=== PATIENT | male | born 1950 | race African-American/Black ===

== ENCOUNTER 2022-02-07 16:34 | Inpatient (IN) | payer MEDICARE, OTHER ==
[2022-02-07] VITALS (8 sets, daily range): BP systolic 62–94; BP diastolic 41–62
[~2022-02-07] VITALS: Ht 177.8 cm; Wt 102.1 kg
[~2022-02-07 16:34] MED LIST: AMLO10TA4 PO; ETOMIDATE 2MG/ML 10ML VIAL IV ONE; IMOD PO; OMEP20CA14 PO; SODIUM CHLORIDE 0.9% 10ML VIAL ONE; TRAM50TA3 PO; VECURONIUM BROMIDE 10 MG/VIAL IV ONE
[2022-02-07] MEDS ORDERED: PIPERACILLIN/TAZ 3.375G PREMIX 50 ML IV ONE (16:45)
[2022-02-07] MEDS ORDERED: VANCOMYCIN 1G PREMIX 200 ML IV ONE (16:45)
[2022-02-07] MEDS ORDERED: SODIUM CHLORIDE 0.9% 1000ML BAG (SEPSIS BOLUS) IV ONE (16:45)
[2022-02-07] MEDS ORDERED: PROPOFOL 10MG/ML 100ML 100 ML IV STA (16:46)
[2022-02-07] MEDS ORDERED: ACETAMINOPHEN 650MG SUPP PR ONE (17:00)
[2022-02-07 17:30] LABS: BG BASE EXCESS -0.2 mmol/L (-2.0-2.0); BG CARBOXYHEMOGLOBIN 1.3 % (0.5-1.5); BG DEOXYHEMOGLOBIN 1.8 % (0.0-5.0); BG FRACTION INSPIRED OXYGEN 100; BG HCO3 ACT 25.4 mmol/L (22.0-26.0); BG METHEMOGLOBIN 0.4 % (0.0-1.5); BG OXYGEN SATURATION 98.2 % (92.0-98.5); BG OXYHEMOGLOBIN 96.5 % (94.0-97.0); BG PCO2 45.2 mmHg (35.0-45.0); BG PH 7.368 (7.350-7.450); BG PO2 110.5 mmHg (75.0-100.0); BG SAMPLE SITE LEFT BRACHIAL; BG TOTAL HEMOGLOBIN 14.6 g/dL (12.0-18.0); BG VENT MODE VENT - AC
[2022-02-07] MEDS ORDERED: MIDAZOLAM 100MG/100ML PMX 100 ML IV STA (17:44)
[2022-02-07 17:46] LABS: HEMATOCRIT. 41.8 % (42.0-52.0); MEAN CORPUSCULAR HEMOGLOBIN 30.6 pg (28.0-32.0); MEAN CORPUSCULAR VOLUME 91.3 fL (80.0-94.0); MEAN PLATELET VOLUME 8.4 fl (7.4-10.4); PLATELET 261 x1000/uL (130-400); RED BLOOD CELL COUNT 4.57 mill/uL (4.7-6.1); RED CELL DISTRIBUTION WIDTH 14.4 % (11.6-14.6)
[2022-02-07 17:50] LABS: CLARITY URINE CLEAR (CLEAR); COLOR URINE YELLOW (YELLOW); KETONES URINE TRACE (NEGATIVE); LEUKOCYTE ESTERASE URINE TRACE (NEGATIVE); NITRITE URINE NEGATIVE (NEGATIVE); OCCULT BLOOD URINE TRACE (NEGATIVE); PH URINE 5.5 (4.5-8.0); PROTEIN URINE 1+ (NEGATIVE); SPECIFIC GRAVITY URINE 1.021 (1.005-1.030)
[2022-02-07 17:55] LABS: CHLORIDE 98 mEq/L (98-107); INR 1.6; PROTHROMBIN TIME 16.8 sec (9.6-11.0)
[2022-02-07] MEDS ORDERED: MIDAZOLAM HCL 100 MG in DEXT 5% WATER 80 ML IV ONE (18:15)
[2022-02-07] MEDS ORDERED: NOREPINEPHRINE 8 MG in DEXT 5% WATER 242 ML IV STA (19:19)
[2022-02-07] MEDS ORDERED: FENTANYL 2500MCG/250ML PMX 250 ML IV ONE (19:30)
[2022-02-07] MEDS ORDERED: NOREPINEPHRINE 8MG/250ML PMX 250 ML IV ONE (19:30)
[2022-02-07 20:07] LABS: ATYPICAL LYMPHOCYTES 1; PLATELET ESTIMATE NORMAL
[2022-02-07] MEDS ORDERED: KETOROLAC 15MG/ML VIAL IV ONE (20:15)
[2022-02-07] MEDS ORDERED: NOREPINEPHRINE 8MG/250ML PMX 250 ML IV PRN (23:15)
[2022-02-07] MEDS ORDERED: MIDAZOLAM HCL 100 MG in SODIUM CHLORIDE 0.9% 80 ML IV PRN (23:15)
[2022-02-07] MEDS ORDERED: PROPOFOL 10MG/ML 100ML 100 ML IV PRN (23:15)
[2022-02-07] MEDS: NOREPINEPHRINE 8 MG in DEXTROSE 5% WATER 250 ML IV PRN (23:46)
[2022-02-08] VITALS (95 sets, daily range): BP systolic 69–118; BP diastolic 25–77
[2022-02-08] MEDS ORDERED: SODIUM CHLORIDE 0.9% 1,000 ML IV SCH (00:45)
[2022-02-08] MEDS ORDERED: DOCUSATE SODIUM 100MG CAPSULE PO PRN (00:45)
[2022-02-08] MEDS ORDERED: HYDROCODONE/ACETAMINOPHEN 5/325MG TABLET PO PRN (00:45)
[2022-02-08] MEDS ORDERED: CLONIDINE 0.1MG TABLET PO PRN (00:45)
[2022-02-08] MEDS ORDERED: ONDANSETRON HCL 4MG/2ML INJ IV PRN (00:45)
[2022-02-08] MEDS ORDERED: ACETAMINOPHEN 325MG TABLET PO PRN ×2 (00:45)
[2022-02-08] MEDS ORDERED: PIPERACILLIN/TAZOBACTAM 3.375 G in DEXTROSE 5% WATER 50 ML IV SCH ×2 (02:00→14:00)
[2022-02-08] MEDS: NOREPINEPHRINE 8 MG in DEXTROSE 5% WATER 250 ML IV PRN ×2 (02:13→04:06)
[2022-02-08 04:41] LABS: *AMPHETAMINES SCREEN URINE NEGATIVE (NEGATIVE); *BARBITURATES SCREEN URINE NEGATIVE (NEGATIVE); *BENZODIAZEPINES SCREEN URINE PRESUMTIVE POSITIVE (NEGATIVE); *COCAINE SCREEN URINE NEGATIVE (NEGATIVE); CANNABINOID URINE SCREEN NEGATIVE (NEGATIVE); METHADONE URINE SCREEN NEGATIVE (NEGATIVE); OPIATES URINE SCREEN NEGATIVE (NEGATIVE); PHENCYCLIDINE URINE SCREEN NEGATIVE (NEGATIVE)
[2022-02-08] MEDS: NOREPINEPHRINE 32 MG in DEXT 5% WATER 218 ML IV PRN ×3 (06:22→21:34)
[2022-02-08] MEDS: PHENYLEPHRINE 100 MG in DEXT 5% WATER 240 ML IV PRN ×3 (09:10→21:34)
[2022-02-08] MEDS ORDERED: VANCOMYCIN 1GM PMX (XELLIA) 200 ML IV NR (10:00)
[2022-02-08] MEDS: PANTOPRAZOLE SODIUM 40 MG/VIAL IV SCH ×2 (10:30→21:33)
[2022-02-08] MEDS ORDERED: NALOXONE HCL 0.4MG/ML VIAL IV PRN (10:45)
[2022-02-08 11:16] LABS: BG BASE EXCESS -9.6 mmol/L (-2.0-2.0); BG CARBOXYHEMOGLOBIN 0.1 % (0.5-1.5); BG DEOXYHEMOGLOBIN 1.6 % (0.0-5.0); BG FRACTION INSPIRED OXYGEN 70; BG HCO3 ACT 14.9 mmol/L (22.0-26.0); BG METHEMOGLOBIN 0.5 % (0.0-1.5); BG OXYGEN SATURATION 98.4 % (92.0-98.5); BG OXYHEMOGLOBIN 97.8 % (94.0-97.0); BG PCO2 29.4 mmHg (35.0-45.0); BG PH 7.323 (7.350-7.450); BG PO2 134.4 mmHg (75.0-100.0); BG SAMPLE SITE RIGHT BRACHIAL; BG TOTAL HEMOGLOBIN 15.4 g/dL (12.0-18.0); BG VENT MODE VENT - AC
[2022-02-08] MEDS ORDERED: FENTANYL 2500MCG/250ML PMX 250 ML IV PRN (11:45)
[2022-02-08] MEDS ORDERED: SODIUM CHLORIDE 0.9% 500 ML IV ONE (11:45)
[2022-02-08] MEDS: VASOPRESSIN 20 UNIT in SODIUM CHLORIDE 0.9% 99 ML IV PRN ×2 (12:34→21:35)
[2022-02-08 13:10] LABS: PHOSPHORUS 3.1 mg/dL (2.5-4.9)
[2022-02-08] MEDS ORDERED: SODIUM BICARBONATE 8.4% 1 MEQ/ML 50ML SYR IV SCH (13:15)
[2022-02-08] MEDS: SODIUM BICARBONATE 100 MEQ in SODIUM CHLORIDE 0.45% 1,000 ML IV SCH (15:05)
[2022-02-08] MEDS ORDERED: ALBUMIN HUMAN 12.5G/250ML (5%) IV NR (15:15)
[2022-02-08 16:00] LABS: HEMATOCRIT. 48.2 % (42.0-52.0); HEMOGLOBIN. 15.5 g/dL (14.0-18.0); MEAN CORPUSCULAR HEMOGLOBIN 30.5 pg (28.0-32.0); MEAN CORPUSCULAR VOLUME 94.5 fL (80.0-94.0); MEAN PLATELET VOLUME 9.5 fl (7.4-10.4); RED CELL DISTRIBUTION WIDTH 16.1 % (11.6-14.6)
[2022-02-08 16:11] LABS: PLATELET 88 x1000/uL (130-400)
[2022-02-08] MEDS ORDERED: MAGNESIUM 2 G PREMIX 50 ML IV NR (16:30)
[2022-02-08] MEDS: BLOOD SUGAR DIAGNOSTIC STRIP TEST SCH (18:20)
[2022-02-08 22:39] LABS: PLATELET ESTIMATE DECREASED
[2022-02-09] VITALS (83 sets, daily range): BP systolic 74–165; BP diastolic 47–107
[2022-02-09] MEDS: BLOOD SUGAR DIAGNOSTIC STRIP TEST SCH ×4 (00:16→18:00)
[2022-02-09] MEDS: SODIUM BICARBONATE 100 MEQ in SODIUM CHLORIDE 0.45% 1,000 ML IV SCH ×2 (03:47→15:00)
[2022-02-09] MEDS: PHENYLEPHRINE 100 MG in DEXT 5% WATER 240 ML IV PRN ×3 (03:48→19:37)
[2022-02-09] MEDS: NOREPINEPHRINE 32 MG in DEXT 5% WATER 218 ML IV PRN ×3 (03:49→21:39)
[2022-02-09 06:43] LABS: CARCINO EMBRYONIC ANTIGEN 1.1 ng/ml
[2022-02-09] MEDS: PANTOPRAZOLE SODIUM 40 MG/VIAL IV SCH ×2 (08:04→21:36)
[2022-02-09 08:39] LABS: BG BASE EXCESS -9.1 mmol/L (-2.0-2.0); BG CARBOXYHEMOGLOBIN 0.1 % (0.5-1.5); BG FRACTION INSPIRED OXYGEN 40; BG HCO3 ACT 14.6 mmol/L (22.0-26.0); BG METHEMOGLOBIN 0.6 % (0.0-1.5); BG OXYHEMOGLOBIN 97.3 % (94.0-97.0); BG PCO2 26.9 mmHg (35.0-45.0); BG PH 7.353 (7.350-7.450); BG PO2 122.8 mmHg (75.0-100.0); BG SAMPLE SITE LEFT RADIAL; BG TOTAL HEMOGLOBIN 14.9 g/dL (12.0-18.0); BG VENT MODE VENT - AC
[2022-02-09] MEDS: IPRATROPIUM/ALBUTEROL 0.5-3(2.5)MG/3ML NEB HHN PRN ×2 (08:47→16:47)
[2022-02-09] MEDS ORDERED: PIPERACILLIN/TAZOBACTAM 3.375 G in DEXTROSE 5% WATER 50 ML IV SCH (09:00)
[2022-02-09] MEDS: VASOPRESSIN 20 UNIT in SODIUM CHLORIDE 0.9% 99 ML IV PRN ×2 (11:15→21:37)
[2022-02-09 11:37] LABS: HEMATOCRIT. 44.4 % (42.0-52.0); HEMOGLOBIN. 14.6 g/dL (14.0-18.0); MEAN CORPUSCULAR HEMOGLOBIN 30.3 pg (28.0-32.0); MEAN CORPUSCULAR VOLUME 92.3 fL (80.0-94.0); RED BLOOD CELL COUNT 4.81 mill/uL (4.7-6.1); RED CELL DISTRIBUTION WIDTH 15.7 % (11.6-14.6)
[2022-02-09 12:13] LABS: NUCLEATED RED BLOOD CELLS 2 /100 WBC
[2022-02-09 12:17] LABS: PLATELET ESTIMATE MARKEDLY DECREASED
[2022-02-09 12:19] LABS: MEAN PLATELET VOLUME 9.6 fl (7.4-10.4); PLATELET 25 x1000/uL (130-400)
[2022-02-09 13:11] LABS: FERRITIN > 1650 ng/mL (22-322)
[2022-02-09] MEDS: MEROPENEM 1,000 MG in SODIUM CHLORIDE 0.9% 100 ML IV SCH (19:35)
[2022-02-09 19:48] LABS: AMYLASE 117 IU/L (25-115)
[2022-02-09] MEDS ORDERED: CEFEPIME 2,000 MG in DEXT 5% WATER 100 ML IV SCH (21:00)
[2022-02-09 21:52] LABS: PROTHROMBIN TIME > 100.0 sec (9.6-11.0)
[2022-02-09] MEDS ORDERED: METRONIDAZOLE 500 MG PREMIX 100 ML IV SCH (22:00)
[2022-02-09 22:03] LABS: FIBRINOGEN < 50 mg/dL (200-400); INR > 10.0
[2022-02-10] VITALS (75 sets, daily range): BP systolic 84–151; BP diastolic 47–121
[2022-02-10] MEDS: SODIUM BICARBONATE 100 MEQ in SODIUM CHLORIDE 0.45% 1,000 ML IV SCH ×3 (00:53→19:56)
[2022-02-10] MEDS: BLOOD SUGAR DIAGNOSTIC STRIP TEST SCH ×4 (00:54→18:50)
[2022-02-10] MEDS: PHENYLEPHRINE 100 MG in DEXT 5% WATER 240 ML IV PRN ×2 (03:26→15:51)
[2022-02-10 06:26] LABS: HEMATOCRIT. 45.3 % (42.0-52.0); HEMOGLOBIN. 15.3 g/dL (14.0-18.0); MEAN CORPUSCULAR HEMOGLOBIN 30.8 pg (28.0-32.0); MEAN CORPUSCULAR VOLUME 91.3 fL (80.0-94.0); MEAN PLATELET VOLUME 10.2 fl (7.4-10.4); RED BLOOD CELL COUNT 4.96 mill/uL (4.7-6.1); RED CELL DISTRIBUTION WIDTH 16.4 % (11.6-14.6)
[2022-02-10 06:57] LABS: PLATELET 44 x1000/uL (130-400)
[2022-02-10] MEDS ORDERED: LIDOCAINE HCL/PF 1% 10 MG/ML 5ML VIAL ONE (08:14)
[2022-02-10 09:53] LABS: NUCLEATED RED BLOOD CELLS 1 /100 WBC; PLATELET ESTIMATE MARKEDLY DECREASED
[2022-02-10 10:21] LABS: BG BASE EXCESS -6.1 mmol/L (-2.0-2.0); BG CARBOXYHEMOGLOBIN 0.3 % (0.5-1.5); BG DEOXYHEMOGLOBIN 3.5 % (0.0-5.0); BG FRACTION INSPIRED OXYGEN 30; BG HCO3 ACT 16.8 mmol/L (22.0-26.0); BG METHEMOGLOBIN 0.5 % (0.0-1.5); BG OXYGEN SATURATION 96.5 % (92.0-98.5); BG OXYHEMOGLOBIN 95.7 % (94.0-97.0); BG PCO2 26.5 mmHg (35.0-45.0); BG PH 7.419 (7.350-7.450); BG SAMPLE SITE LEFT RADIAL; BG TOTAL HEMOGLOBIN 13.8 g/dL (12.0-18.0); BG VENT MODE VENT - AC
[2022-02-10] MEDS: PANTOPRAZOLE SODIUM 40 MG/VIAL IV SCH ×2 (10:23→20:20)
[2022-02-10 10:30] LABS: PHOSPHORUS 5.2 mg/dL (2.5-4.9)
[2022-02-10 10:31] LABS: CHLORIDE 90 mEq/L (98-107)
[2022-02-10] MEDS: NOREPINEPHRINE 32 MG in DEXT 5% WATER 218 ML IV PRN (11:33)
[2022-02-10 13:09] LABS: PARTIAL THROMBOPLASTIN TIME 54.1 sec (23.4-31.0)
[2022-02-10 13:24] LABS: PROTHROMBIN TIME > 100.0 sec (9.6-11.0)
[2022-02-10 13:26] LABS: INR > 10.0
[2022-02-10] MEDS ORDERED: CALCIUM GLUCONATE 1GM PREMIX 50 ML IV SCH (14:45)
[2022-02-10 15:20] LABS: CREATINE KINASE 3637 IU/L (39-308)
[2022-02-10] MEDS ORDERED: SODIUM POLYSTYRENE SULFONATE 15 G/60 ML BOT PO NR ×2 (15:30→15:45)
[2022-02-10] MEDS ORDERED: SODIUM POLYSTYRENE SULFONATE 15 G/60 ML BOT PO SCH (15:30)
[2022-02-10] MEDS ORDERED: MAGNESIUM 2 G PREMIX 50 ML IV SCH (17:00)
[2022-02-10 17:49] LABS: SODIUM URINE RANDOM 77 mEq/L
[2022-02-10] MEDS ORDERED: MAGNESIUM 2 G PREMIX 50 ML IV NR (19:00)
[2022-02-10] MEDS: MEROPENEM 1,000 MG in SODIUM CHLORIDE 0.9% 100 ML IV SCH (19:57)
[2022-02-10] MEDS: CALCIUM GLUCONATE 1GM PREMIX 50 ML IV SCH (19:58)
[2022-02-11] VITALS (29 sets, daily range): BP systolic 39–125; BP diastolic 25–72
[2022-02-11] MEDS: BLOOD SUGAR DIAGNOSTIC STRIP TEST SCH ×2 (00:07→05:39)
[2022-02-11] MEDS: NOREPINEPHRINE 32 MG in DEXT 5% WATER 218 ML IV PRN (01:11)
[2022-02-11] MEDS: PHENYLEPHRINE 100 MG in DEXT 5% WATER 240 ML IV PRN (01:12)
[2022-02-11] MEDS ORDERED: DEXTROSE 50% WATER 50ML SYRINGE IV NR (04:15)
[2022-02-11] MEDS: VASOPRESSIN 20 UNIT in SODIUM CHLORIDE 0.9% 99 ML IV PRN (05:44)
[2022-02-11 06:07] LABS: HEMATOCRIT. 39.9 % (42.0-52.0); HEMOGLOBIN. 13.3 g/dL (14.0-18.0); MEAN CORPUSCULAR HEMOGLOBIN 30.7 pg (28.0-32.0); MEAN CORPUSCULAR VOLUME 91.9 fL (80.0-94.0); MEAN PLATELET VOLUME 11.3 fl (7.4-10.4); RED BLOOD CELL COUNT 4.35 mill/uL (4.7-6.1); RED CELL DISTRIBUTION WIDTH 16.1 % (11.6-14.6)
[2022-02-11 06:25] LABS: CHLORIDE 88 mEq/L (98-107)
[2022-02-11 06:55] LABS: PHOSPHORUS 6.4 mg/dL (2.5-4.9)
[2022-02-11 07:17] LABS: PLATELET 40 x1000/uL (130-400)
[2022-02-11] MEDS: SODIUM BICARBONATE 100 MEQ in SODIUM CHLORIDE 0.45% 1,000 ML IV SCH (08:02)
[2022-02-11] MEDS: CALCIUM GLUCONATE 1GM PREMIX 50 ML IV SCH (08:02)
[2022-02-11] MEDS: PANTOPRAZOLE SODIUM 40 MG/VIAL IV SCH (08:03)
[2022-02-11] MEDS ORDERED: PHYTONADIONE 10MG/ML AMP SUBCUT NR (09:00)
[2022-02-11] MEDS ORDERED: CALCITRIOL 1MCG/ML AMP IV SCH (09:30)
[2022-02-11] MEDS: IPRATROPIUM/ALBUTEROL 0.5-3(2.5)MG/3ML NEB HHN PRN (10:01)
[2022-02-11 11:57] LABS: PLATELET ESTIMATE MARKEDLY DECREASED
[2022-02-11] MEDS ORDERED: VANCOMYCIN 750MG PMX (XELLIA) 150 ML IV SCH (12:00)
[2022-02-11] MEDS ORDERED: MORPHINE SULFATE 250 MG in DEXT 5% WATER 225 ML IV PRN (12:15)
[2022-02-12 03:36] LABS: FOLIC ACID (FOLATE) SERUM >20 ng/mL ng/mL (>5.38)
[2022-02-12 10:52] LABS: VITAMIN B12 SERUM >2000 pg/mL pg/mL (211-911)
== END 2022-02-11 14:13 | DRG 720 ==
LOC: ER 16:34 → EDBEDREQ 18:35 → EDBEDREQTM 18:35 → ENRESERV 20:19 → CVICU 23:01
PROVIDERS: ADMIT Internal Medicine; ATTEND Internal Medicine
PROC: 5A1945Z Respiratory Ventilation, 24-96 Consecutive Hours (ICD-10-PCS; principal; 2022-02-07)
PROC: 0BH17EZ Insertion of Endotracheal Airway into Trachea, Via Natural or Artificial Opening (ICD-10-PCS; 2022-02-07)
PROC: 02HV33Z Insertion of Infusion Device into Superior Vena Cava, Percutaneous Approach (ICD-10-PCS; 2022-02-10)
PROC: B548ZZA Ultrasonography of Superior Vena Cava, Guidance (ICD-10-PCS; 2022-02-10)
DX: A41.9 Sepsis, unspecified organism (principal); J96.01 Acute respiratory failure with hypoxia; N17.0 Acute kidney failure with tubular necrosis; K72.00 Acute and subacute hepatic failure without coma; D65 Disseminated intravascular coagulation [defibrination syndrome]; K85.90 Acute pancreatitis without necrosis or infection, unspecified; G93.41 Metabolic encephalopathy; J18.9 Pneumonia, unspecified organism; R65.21 Severe sepsis with septic shock; Z20.822 Contact with and (suspected) exposure to COVID-19; I13.0 Hypertensive heart and chronic kidney disease with heart failure and stage 1 through stage 4 chronic kidney disease, or unspecified chronic kidney disease; E87.1 Hypo-osmolality and hyponatremia; I69.351 Hemiplegia and hemiparesis following cerebral infarction affecting right dominant side; D63.1 Anemia in chronic kidney disease; S81.811A Laceration without foreign body, right lower leg, initial encounter; Z66 Do not resuscitate; E87.2 Acidosis; E83.51 Hypocalcemia; K92.2 Gastrointestinal hemorrhage, unspecified; D68.9 Coagulation defect, unspecified; D68.8 Other specified coagulation defects; I50.32 Chronic diastolic (congestive) heart failure; J32.0 Chronic maxillary sinusitis; J98.11 Atelectasis; N18.30 Chronic kidney disease, stage 3 unspecified; M13.0 Polyarthritis, unspecified; E83.42 Hypomagnesemia; E66.9 Obesity, unspecified; I95.9 Hypotension, unspecified; B17.9 Acute viral hepatitis, unspecified; G80.8 Other cerebral palsy; Z68.32 Body mass index [BMI] 32.0-32.9, adult; Z82.49 Family history of ischemic heart disease and other diseases of the circulatory system; Z79.899 Other long term (current) drug therapy; X58.XXXA Exposure to other specified factors, initial encounter; Y93.89 Activity, other specified; Y92.89 Other specified places as the place of occurrence of the external cause; Y99.8 Other external cause status
CPT/HCPCS: 31500; 36415; 36573; 36600; 71045; 71250; 74176; 80048; 80053; 80202; 80305; 81003; 82150; 82375; 82378; 82533; 82550; 82607; 82728; 82746; 82805; 82962; 83540; 83550; 83605; 83735; 83880; 83935; 84100; 84145; 84300; 84443; 84478; 84484; 85025; 85044; 85362; 85379; 85384; 86850; 86900; 87070; 87077; 87186; 87426; 87804; 93005; 93306; 93970; 94003; 94640; 99291; C1725; C9113; C9803; J0610; J0636; J0692; J1885; J2185; J2250; J2270; J2370; J2543; J2704; J3010; J3370; J3430; J3475; J3490; J7030; J7050; J7060; P9041